=== PATIENT | female | born 2005 | race Caucasian/White ===

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

== ENCOUNTER → 2025-02-23 | Outpatient (CLI) | payer BC ==
--- NOTE | 2025-02-23 09:08 | CT ---
EXAMINATION TYPE: CT adrenal glands wo/w con CT DLP: 534.9 mGycm, Automated exposure control for dose reduction was used. DATE OF EXAM: 02/23/2025 8:27 AM COMPARISON: CT abdomen pelvis most recent from . CLINICAL INDICATION:Female, 19 years old with history of R23.2 FLUSHING R63.4 WEIGHT LOSS UNINTENTION AL; weightloss, fatigue TECHNIQUE: Standard CT of the abdomen andbefore and after the uneventful administration of 100 mL I sovue 300 intravenously. Oral contrast was administered. Coronal and sagittal reformats were performe d. FINDINGS: LOWER CHEST: Unremarkable ABDOMEN LIVER: Unremarkable GALLBLADDER AND BILE DUCTS: Unremarkable. PANCREAS: Unremarkable. SPLEEN: Unremarkable. ADRENAL GLANDS: Unremarkable. KIDNEYS AND URETERS: No evidence of hydronephrosis or renal calculus. The kidneys enhance symmetrical ly. Contrast is demonstrated within both collecting systems and proximal ureters on the delayed phase . No suspicious lesion identified. PELVIS BLADDER: Unremarkable REPRODUCTIVE: Unremarkable. ABDOMEN & PELVIS STOMACH AND BOWEL: Unremarkable. Enteric contrast reaches the mid to distal small bowel. No evidence of bowel obstruction. PERITONEUM: No evidence of pneumoperitoneum or free fluid. VASCULATURE: No evidence of aortic aneurysm. MUSCULOSKELETAL: No acute osseous abnormalities LYMPH NODES: No evidence for lymphadenopathy. SOFT TISSUE/ABDOMINAL WALL: Unremarkable IMPRESSION: No CT evidence to explain patient's symptomology. [facility], , 02/23/2025 9:06 AM
== END | disposition home or self-care (01) ==
LOC: RADCTMAIN 07:17
PROVIDERS: ATTEND Internal Medicine Endocrinology, Diabetes & Metabolism
DX: R23.2 Flushing (principal); R63.4 Abnormal weight loss
CPT/HCPCS: 74170; Q9967

== ENCOUNTER → 2025-02-27 | Outpatient (CLI) | payer BC ==
[2025-02-27 15:30] LABS: HCT 36.1 % (37.2-46.3); HGB 12.0 g/dL (12.0-15.0); MCH 30.3 pg (27.0-32.0); MCHC 33.2 g/dL (32.0-37.0); MCV 91.2 FL (80.0-97.0); NRBC Per 100 WBC 0 X 10*3/uL (0.00-0.01); Platelet Count 211 X 10*3/uL (140-440); RBC 3.96 X 10*6/uL (4.10-5.20); RDW 12.6 % (11.5-14.5); WBC 3.93 X 10*3/uL (4.50-10.00)
[2025-02-27 15:51] LABS: ALT 15 U/L (8-44); AST 25 U/L (13-35); Albumin 4.7 g/dL (3.8-4.9); Albumin/Globulin Ratio 2.24 Ratio (1.60-3.17); Alkaline Phosphatase 64 U/L (41-126); Anion Gap 10.80 mmol/L (4.00-12.00); BUN/Creat Ratio 10.57 Ratio (12.00-20.00); Blood Urea Nitrogen 7.4 mg/dL (9.0-27.0); Calcium 9.7 mg/dL (8.7-10.3); Carbon Dioxide 26.2 mmol/L (21.6-31.8); Chloride 106 mmol/L (96-109); Globulin 2.1 g/dL (1.6-3.3); Glucose 101 mg/dL (70-110); Potassium 3.9 mmol/L (3.5-5.5); Sodium 143 mmol/L (135-145); T4, Free (Free Thyroxine) 1.21 ng/dL (0.80-1.80); Total Protein 6.8 g/dL (6.2-8.2); Vitamin B12 703.0 pg/mL (200.0-944.0)
[2025-02-27 16:00] LABS: Procalcitonin 0.03 ng/mL (0.02-0.50)
[2025-02-27 16:05] LABS: Follicle Stimulating Hormone 6.0 mIU/mL
[2025-02-28 00:42] LABS: ACTH 13.6 pg/mL (0.00-45.99)
== END | disposition home or self-care (01) ==
LOC: LABWHC1 10:25
PROVIDERS: ATTEND Internal Medicine Endocrinology, Diabetes & Metabolism
DX: E07.9 Disorder of thyroid, unspecified (principal); R23.2 Flushing; R53.83 Other fatigue
CPT/HCPCS: 36415; 80053; 82024; 82533; 82607; 82670; 83001; 84145; 84439; 84443; 84481; 85027; 86376; 86800